=== PATIENT | female | born 1970 | race Two or more races ===

== ENCOUNTER 2021-10-01 04:25 | Day surgery (SDC) | payer BC ==
[2021-09-29 12:13] VITALS: BMI 24.6
[2021-10-01 10:42] VITALS: TEMP 97
[2021-10-01 11:14] VITALS: BP 122/79; PULSE 61
== END 2021-10-01 11:20 | disposition home or self-care (01) ==
LOC: JASU-ENDO 04:25
PROVIDERS: ATTEND Internal Medicine Gastroenterology
PROC: 0DBK8ZX Excision of Ascending Colon, Via Natural or Artificial Opening Endoscopic, Diagnostic (ICD-10-PCS; 2021-10-01)
PROC: 0DBL8ZX Excision of Transverse Colon, Via Natural or Artificial Opening Endoscopic, Diagnostic (ICD-10-PCS; principal; 2021-10-01 09:30)
DX: Z12.11 Encounter for screening for malignant neoplasm of colon (principal); D12.2 Benign neoplasm of ascending colon; D12.3 Benign neoplasm of transverse colon; K64.8 Other hemorrhoids; K59.89 Other specified functional intestinal disorders
CPT/HCPCS: 81025; 88305-TC

== ENCOUNTER 2023-06-13 04:21 | Day surgery (SDC) | payer OTHER ==
[2023-06-07 16:12] VITALS: BMI 24.7
[2023-06-13 11:38] VITALS: RESP 18; TEMP 98
[2023-06-13 12:04] VITALS: BP 135/72; PULSE 60
== END 2023-06-13 12:05 | disposition home or self-care (01) ==
LOC: JASU-ENDO 04:21
PROVIDERS: ATTEND Internal Medicine Gastroenterology
PROC: 0DB78ZX Excision of Stomach, Pylorus, Via Natural or Artificial Opening Endoscopic, Diagnostic (ICD-10-PCS; 2023-06-13)
PROC: 0DB68ZX Excision of Stomach, Via Natural or Artificial Opening Endoscopic, Diagnostic (ICD-10-PCS; 2023-06-13)
PROC: 0DB98ZX Excision of Duodenum, Via Natural or Artificial Opening Endoscopic, Diagnostic (ICD-10-PCS; principal; 2023-06-13 11:00)
DX: K29.50 Unspecified chronic gastritis without bleeding (principal); K31.7 Polyp of stomach and duodenum
CPT/HCPCS: 81025; 88305-TC; 88342-TC